=== PATIENT | male | born 1970 | race Caucasian/White ===

== ENCOUNTER → 2018-06-11 | Outpatient (CLI) | payer BC ==
[~2018-06-11] MED LIST: ASPI-496 PO; ATOR-2 PO; ATOR20TA PO; LISI-167 PO; METO25TA35 PO; METO50TA82 PO; TAMS-11 PO
[2018-06-11 15:46] LABS: BASOPHILS # (AUTO) 0.04 x10^3/uL (0-0.1); BASOPHILS % (AUTO) 1 % (0-1); EOSINOPHILS # (AUTO) 0.14 x10^3/uL (0-0.4); EOSINOPHILS % (AUTO) 2 % (1-7); LYMPHOCYTES # (AUTO) 1.95 x10^3/uL (1-3.4); LYMPHOCYTES % (AUTO) 29 % (22-44); MD NO; MEAN CORPUSCULAR HEMOGLOBIN 30.9 pg (27.5-34.5); MEAN CORPUSCULAR HGB CONC 34.3 g/dL (33.2-36.2); MEAN PLATELET VOLUME 9.1 fL (7.4-10.4); MONOCYTES # (AUTO) 0.56 x10^3/uL (0.2-0.8); MONOCYTES % (AUTO) 8 % (2-9); NEUTROPHILS # (AUTO) 4.15 x10^3/uL (1.8-6.8); NEUTROPHILS % (AUTO) 61 % (42-75); PLATELET COUNT 194 x10^3/uL (130-400); RED BLOOD COUNT 4.95 x10^6/uL (4.38-5.82); RED CELL DISTRIBUTION WIDTH 12.9 % (9.4-14.8)
[2018-06-11 16:06] LABS: ALBUMIN 3.9 g/dL (3.4-5.0); ANION GAP 3 mmol/L (5-15); CALCIUM 8.9 mg/dL (8.5-10.1); CHLORIDE 108 mmol/L (98-107)
[2018-06-11 16:08] LABS: ALANINE AMINOTRANSFERASE 41 U/L (12-78); ALKALINE PHOSPHATASE 91 U/L (45-117); BILIRUBIN,TOTAL 0.6 mg/dL (0.2-1.0); CREATININE 0.71 mg/dL (0.7-1.3); TOTAL PROTEIN 6.9 g/dL (6.4-8.2)
== END | disposition home or self-care (01) ==
LOC: STAR 14:53
PROVIDERS: ATTEND Colon & Rectal Surgery
DX: Z01.818 Encounter for other preprocedural examination (principal)
CPT/HCPCS: 36415; 80053; 85025; 93005

== ENCOUNTER 2019-08-21 08:19 | Observation (INO) | payer BC ==
[~2019-08-21] VITALS: Ht 185.4 cm; Wt 100.0 kg
[~2019-08-21 08:19] MED LIST changes: +IBUP200T49 PO; +METO10TA82 PO; +ONDA4TAB7 PO
--- NOTE | 2019-08-21 08:36 | NUR ---
PATIENT ARRIVES WITH SOB/CHEST TIGHTNESS THAT BEGAN LAST NIGHT. STATES RECENT STRESS FROM WORK.
[2019-08-21] MEDS ORDERED: ASPIRIN 81 MG TABLET EC ONE (08:53)
[2019-08-21] MEDS ORDERED: ASPIRIN 81 MG TABLET CHEW PO ONE (09:00)
[2019-08-21] MEDS ORDERED: SODIUM CHLORIDE FLUSH 10ML SYR IVF ONE (09:00)
[2019-08-21 09:08] LABS: BASOPHILS # (AUTO) 0.03 x10^3/uL (0-0.1); BASOPHILS % (AUTO) 0 % (0-1); EOSINOPHILS # (AUTO) 0.04 x10^3/uL (0-0.4); EOSINOPHILS % (AUTO) 1 % (1-7); LYMPHOCYTES # (AUTO) 1.13 x10^3/uL (1-3.4); LYMPHOCYTES % (AUTO) 15 % (22-44); MD NO; MEAN CORPUSCULAR HEMOGLOBIN 30.8 pg (27.5-34.5); MEAN CORPUSCULAR HGB CONC 33.3 g/dL (33.2-36.2); MEAN CORPUSCULAR VOLUME 92.6 fL (81-97); MEAN PLATELET VOLUME 8.5 fL (7.4-10.4); MONOCYTES # (AUTO) 0.39 x10^3/uL (0.2-0.8); MONOCYTES % (AUTO) 5 % (2-9); NEUTROPHILS % (AUTO) 79 % (42-75); PLATELET COUNT 207 x10^3/uL (130-400); RED CELL DISTRIBUTION WIDTH 12.9 % (9.4-14.8)
[2019-08-21 09:18] LABS: ALANINE AMINOTRANSFERASE 26 U/L (12-78); ALBUMIN 3.9 g/dL (3.4-5.0); ANION GAP 5 mmol/L (5-15); CHLORIDE 109 mmol/L (98-107); CREATININE 0.71 mg/dL (0.7-1.3)
[2019-08-21 09:22] LABS: ALKALINE PHOSPHATASE 74 U/L (45-117); BILIRUBIN,TOTAL 0.9 mg/dL (0.2-1.0); TOTAL PROTEIN 7.6 g/dL (6.4-8.2); TROPONIN I < 0.015 ng/mL (0.000-0.045)
--- NOTE | 2019-08-21 09:42 | NUR ---
DENIES PAIN AT THIS TIME. RESTING QUIETLY
--- NOTE | 2019-08-21 11:07 | NUR ---
report called to maureen garcia. patient in bed, calm, vss.
[2019-08-21 11:41] VITALS: BP 117/80
[2019-08-21] MEDS ORDERED: TADA10TA PO (12:14)
[2019-08-21] MEDS ORDERED: ACETAMINOPHEN 325 MG TABLET PO PRN (12:30)
[2019-08-21] MEDS ORDERED: ONDANSETRON 2MG/ML, 2ML IVPush PRN (12:30)
[2019-08-21] MEDS ORDERED: DOCUSATE 100 MG CAPSULE PO PRN (12:30)
[2019-08-21] MEDS ORDERED: POLYETHYLENE GLYCOL 17 GM PACKET PO PRN (12:30)
[2019-08-21] MEDS ORDERED: NITROGLYCERIN 0.4 MG/SPRAY SL PRN (13:00)
[2019-08-21] MEDS ORDERED: NITROGLYCERIN 0.4 MG BOTTLE (25 TABS) SL PRN (13:00)
[2019-08-21 15:27] LABS: TROPONIN I < 0.015 ng/mL (0.000-0.045)
[2019-08-21 15:35] VITALS: BP 105/87
[2019-08-21] MEDS: ENOXAPARIN 40 MG/0.4 ML SQ SCH (15:51)
[2019-08-21 20:29] VITALS: BP 111/70
[2019-08-21] MEDS ORDERED: ATORVASTATIN 80 MG TABLET PO SCH (21:00)
[2019-08-21 21:42] LABS: TROPONIN I < 0.015 ng/mL (0.000-0.045)
[2019-08-22 01:30] VITALS: BP 113/73
[2019-08-22 04:54] LABS: BASOPHILS # (AUTO) 0.04 x10^3/uL (0-0.1); BASOPHILS % (AUTO) 1 % (0-1); EOSINOPHILS # (AUTO) 0.17 x10^3/uL (0-0.4); EOSINOPHILS % (AUTO) 2 % (1-7); LYMPHOCYTES % (AUTO) 26 % (22-44); MD NO; MEAN CORPUSCULAR HEMOGLOBIN 30.8 pg (27.5-34.5); MEAN CORPUSCULAR HGB CONC 33.3 g/dL (33.2-36.2); MEAN CORPUSCULAR VOLUME 92.4 fL (81-97); MEAN PLATELET VOLUME 8.4 fL (7.4-10.4); MONOCYTES # (AUTO) 0.65 x10^3/uL (0.2-0.8); MONOCYTES % (AUTO) 8 % (2-9); NEUTROPHILS # (AUTO) 5.08 x10^3/uL (1.8-6.8); NEUTROPHILS % (AUTO) 63 % (42-75); PLATELET COUNT 189 x10^3/uL (130-400); RED BLOOD COUNT 5.58 x10^6/uL (4.38-5.82); RED CELL DISTRIBUTION WIDTH 13.1 % (9.4-14.8)
[2019-08-22 05:08] LABS: ALBUMIN 3.7 g/dL (3.4-5.0); ANION GAP 3 mmol/L (5-15); CALCIUM 8.8 mg/dL (8.5-10.1); CHLORIDE 108 mmol/L (98-107)
[2019-08-22 05:21] LABS: ALANINE AMINOTRANSFERASE 27 U/L (12-78); ALKALINE PHOSPHATASE 71 U/L (45-117); BILIRUBIN,TOTAL 0.9 mg/dL (0.2-1.0); CHOL/HDL RATIO 4.4; CHOLESTEROL, TOTAL 154 mg/dL (140-239); CREATININE 0.89 mg/dL (0.7-1.3); HDL CHOL % 23 % (26-37); HDL CHOLESTEROL (DIRECT) 35 mg/dL (40-60); LDL CHOLESTEROL,CALCULATED 95 mg/dL (54-169); LDL/HDL RATIO 2.7 (0.5-3.0); TOTAL PROTEIN 7.3 g/dL (6.4-8.2); TRIGLYCERIDES 120 mg/dL (50-200); VLDL CHOLESTEROL 24 mg/dL (0-25)
[2019-08-22] MEDS ORDERED: METOPROLOL SUCCINATE 100 MG TAB.ER.24H PO SCH ×2 (06:00→09:00)
[2019-08-22] MEDS ORDERED: REGADENOSON 0.4 MG/5 ML SYRINGE ONE (07:53)
[2019-08-22 08:00] VITALS: BP 119/77
[2019-08-22] MEDS ORDERED: LISINOPRIL 10 MG TABLET PO SCH (09:00)
[2019-08-22] MEDS ORDERED: ASPIRIN 81 MG TABLET EC PO SCH (09:00)
[2019-08-22] MEDS: ENOXAPARIN 40 MG/0.4 ML SQ SCH (11:42)
[2019-08-22] MEDS ORDERED: ASPI81TA45 PO (12:42)
[2019-08-22] MEDS ORDERED: NITR0.4T28 SL (12:42)
== END 2019-08-22 13:15 | disposition home or self-care (01) ==
LOC: ED 09:16 → EDIP 10:54 → INTOOBSV 10:54 → 5SO 11:26 → DCLOUNGE 08-22 13:07
PROVIDERS: ADMIT Hospitalist; ATTEND Internal Medicine
DX: I25.119 Atherosclerotic heart disease of native coronary artery with unspecified angina pectoris (principal); R07.89 Other chest pain; I10 Essential (primary) hypertension; N20.0 Calculus of kidney; K57.90 Diverticulosis of intestine, part unspecified, without perforation or abscess without bleeding; F12.90 Cannabis use, unspecified, uncomplicated; E78.5 Hyperlipidemia, unspecified; Z87.891 Personal history of nicotine dependence; Z87.442 Personal history of urinary calculi; Z79.899 Other long term (current) drug therapy; Z79.82 Long term (current) use of aspirin
CPT/HCPCS: 36415; 71045; 78452; 80053; 80061; 84443; 84484; 85025; 93005; 93017; 93306; 99285; A9502; G0378; J2785

== ENCOUNTER 2020-02-27 06:02 | Emergency (ER) | payer BC ==
[~2020-02-27] VITALS: Ht 185.4 cm; Wt 105.3 kg
[~2020-02-27 06:02] MED LIST changes: +ASPI81TA45 PO; +NITR0.4T28 SL; +TADA10TA PO
--- NOTE | 2020-02-27 06:22 | NUR ---
PT AMBULATORY TO BATHROOM WITH STEADY GAIT TO PROVIDE URINE SAMPLE.
--- NOTE | 2020-02-27 06:30 | NUR ---
INTIAL PT CONTACT. PT PRESENTS TO THE ED C/O LEFT FLANK PAIN. "I THINK I HAVE A KIDENY STONE ACTING UP, I HAVE HAD THEM A LOT IN THE PAST AND IT FEELS THE SAME". PAIN BEGAN APPROX 5 HOURS AGO. PT DENIES ANY OTHER SYMPTOMS AT THIS TIME. PT SITTING UPRIGHT ON GURNEY, NAD, VSS. PT DENIES ANY ADDITIONAL NEEDS AT THIS TIME. CALL LIGHT WITHIN REACH.
--- NOTE | 2020-02-27 06:31 | NUR ---
PT UNABLE TO PROVIDE URINE SAMPLE AT THIS TIME. PT SITTING UPRIGHT ON GURNEY, NAD, VSS. PT DENIES ANY NEEDS AT THIS TIME. CALL LIGHT AND PERSONAL BELONGINGS WITHIN REACH.
--- NOTE | 2020-02-27 06:40 | NUR ---
PT TO IMAGING.
--- NOTE | 2020-02-27 07:03 | NUR ---
BEDSIDE REPORT TO ADILENE ZAVALETA
--- NOTE | 2020-02-27 07:04 | NUR ---
report from Renetta Valentine. assumed patient care.
--- NOTE | 2020-02-27 07:11 | NUR ---
PATIENT WAS UP TO BATHROOM, AND STATES HE CAN'T VOID. DRINKING WATER FOR UA.
[2020-02-27 07:12] LABS: ALANINE AMINOTRANSFERASE 29 U/L (12-78); ALBUMIN 3.9 g/dL (3.4-5.0); ANION GAP 2 mmol/L (5-15); CHLORIDE 109 mmol/L (98-107); CREATININE 0.84 mg/dL (0.7-1.3)
[2020-02-27 07:14] LABS: ALKALINE PHOSPHATASE 68 U/L (45-117); BILIRUBIN,TOTAL 0.7 mg/dL (0.2-1.0); TOTAL PROTEIN 7.4 g/dL (6.4-8.2)
[2020-02-27 07:28] LABS: BASOPHILS % (AUTO) 1 % (0-1); EOSINOPHILS % (AUTO) 2 % (1-7); LYMPHOCYTES % (AUTO) 24 % (22-44); MEAN CORPUSCULAR HEMOGLOBIN 31.5 pg (27.5-34.5); MEAN CORPUSCULAR HGB CONC 34.8 g/dL (33.2-36.2); MEAN PLATELET VOLUME 8.6 fL (7.4-10.4); MONOCYTES % (AUTO) 10 % (2-9); NEUTROPHILS % (AUTO) 64 % (42-75); PLATELET COUNT 189 x10^3/uL (130-400); RED BLOOD COUNT 5.31 x10^6/uL (4.38-5.82)
[2020-02-27 07:36] LABS: MD NO
[2020-02-27 08:26] LABS: MICROSCOPIC NOT IND
[2020-02-27 09:18] VITALS: BP 125/78
== END 2020-02-27 09:58 | disposition home or self-care (01) ==
LOC: ED 08:42
DX: M54.6 Pain in thoracic spine (principal); R10.9 Unspecified abdominal pain; I10 Essential (primary) hypertension; Z90.89 Acquired absence of other organs
CPT/HCPCS: 36415; 74018; 76770; 80053; 81003; 85025; 99285